=== PATIENT | female | born 1990 | race American Indian/Alaskan Native ===

== ENCOUNTER 2019-03-01 13:08 | Emergency (ER) | payer OTHER ==
[2019-03-01 13:17] VITALS: BP 116/62
--- NOTE | 2019-03-01 13:21 | Event Note ---
ED Screening Note Date of service: 03/01/19 Time: 13:15 ED Screening Note: 28 y o f present to ed cc leg spasm after prolonged standing x 2 days states almost fell over at work yesterday. cc of bilateral calf and foot swelling right > left This initial assessment/diagnostic orders/clinical plan/treatment(s) is/are subject to change based on patients health status, clinical progression and re- assessment by fellow clinical providers in the ED. Further treatment and workup at subsequent clinical providers discretion. Patient/guardian urged not to elope from the ED as their condition may be serious if not clinically assessed and managed. Initial orders include: low risk for DVT
--- NOTE | 2019-03-01 16:22 | Vascular Lab Report ---
DUPLEX DOPPLER LOWER EXTREMITY VEINS, BILATERAL INDICATION: Bilateral lower extremity pain and swelling. TECHNIQUE: Duplex doppler imaging was performed through the veins of both lower extremities using ve nous compression and other maneuvers. COMPARISON: No relevant prior imaging study available. FINDINGS: Right Common femoral vein: Negative. Right Superficial femoral vein: Negative. Right Popliteal vein: Negative. Right Calf veins: Negative. Left Common femoral vein: Negative. Left Superficial femoral vein: Negative. Left Popliteal vein: Negative. Left Calf veins: Negative. Additional findings: None.. IMPRESSION: No sonographic evidence for DVT in either lower extremity. Signer Name: John Brewster Jr, MD Signed: 03/01/2019 4:17 PM Workstation Name: [id number]
[2019-03-01] MEDS ORDERED: LASIX PO ONE (16:26)
--- NOTE | 2019-03-01 16:42 | Emergency Department Report ---
HPI - General Chief Complaint: Extremity Problem,Nontraumatic Time Seen by Provider: 03/01/19 13:14 - HPI HPI: 28-year-old -Italian female presents to the emergency department with a complaint of a 2 day history of bilateral lower extremity pain and swelling. The symptoms are mostly in the feet, ankles and calves with the left greater than right. 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 She has not taken anything for her symptoms prior to presentation. She denies any skin color change, rash, lesions. She denies any chest pain, shortness of breath. She denies any past medical history. She says that when she keeps her legs raised at home the swelling will go down slightly, but it increases when she goes back to work. ED Past Medical Hx - Past Medical History Previous Medical History?: No - Surgical History Past Surgical History?: No - Social History Smoking Status: Never Smoker Substance Use Type: None ED Review of Systems ROS: Stated complaint: LT LEG SWOLLEN Other details as noted in HPI Comment: All other systems reviewed and negative Constitutional: denies: chills, fever Respiratory: denies: shortness of breath, SOB with exertion Cardiovascular: edema. denies: chest pain Gastrointestinal: denies: abdominal pain, vomiting Musculoskeletal: myalgia. denies: back pain Skin: denies: rash, lesions Neurological: denies: numbness, paresthesias Physical Exam - Physical Exam Vital Signs: Vital Signs 03/01/19 13:15 Temperature 98.3 F Pulse Rate 92 H Respiratory 18 Rate Blood Pressure 116/62 O2 Sat by Pulse 99 Oximetry ED Course Vital Signs 03/01/19 13:15 Temperature 98.3 F Pulse Rate 92 H Respiratory 18 Rate Blood Pressure 116/62 O2 Sat by Pulse 99 Oximetry Critical care attestation.: If time is entered above; I have spent that time in minutes in the direct care of this critically ill patient, excluding procedure time. ED Disposition Clinical Impression: Bilateral lower extremity edema, Bilateral leg pain Disposition: DC-01 TO HOME OR SELFCARE Is pt being admited?: No Condition: Stable Instructions: Arthralgia (ED), Leg Edema (ED) Additional Instructions: Please follow-up with a primary care physician in the next few days. Return to the emergency Department with any worsening of your symptoms or any acute distress. I recommend that you obtain some compression stockings to wear. I do not want you to be immobile, however, when you are resting at home you can elevate your legs to try and get rid of the swelling. Referrals: [facility] [Outside] - 3-5 Days [facility] [Outside] - 3-5 Days [facility] [Outside] - 3-5 Days Time of Disposition: 16:42
== END 2019-03-01 16:57 | disposition home or self-care (01) ==
LOC: ED 13:08
DX: R60.0 Localized edema (principal); M79.604 Pain in right leg; M79.605 Pain in left leg
CPT/HCPCS: 36415; 83880; 85379; 93970